=== PATIENT | female | born 1995 | race Caucasian/White ===

== ENCOUNTER 2017-02-21 18:40 | Emergency (ER) | payer OTHER ==
[2017-02-21 18:51] VITALS: TEMP 97.9
--- NOTE | 2017-02-21 19:25 | ED ---
Female Urogenital HPI - General Chief complaint: Vaginal Bleeding Stated complaint: Vaginal Bleeding, 7 weeks preg Time Seen by Provider: 02/21/17 18:58 Source: patient Mode of arrival: ambulatory Limitations: no limitations - History of Present Illness Initial comments: 22-year-old female patient who presents to the emergency department today for complaints of lower back pain, abdominal cramping, and vaginal bleeding. Patient is approximately 7 weeks . Last menstrual period was 2016. She is . Patient states that she developed lower back pain with abdominal cramping 2 days ago. Patient states that the pain has increased and she started having some spotting today. States that whenever she goes to the bathroom and wipes she has blood on toilet paper. She denies having used any pads. She has not any care, but did have positive test at [facility]. Patient denies any recent rash, fever, chills, shortness breath, chest pain, nausea, vomiting, diarrhea, constipation, numbness, tingling, dizziness, weakness, hematuria, dysuria, urinary urgency, urinary frequency, headache, visual changes, or any other complaints. She denies any concern for STIs or HIV. Last Menstrual Period: 12/30/16 - Related Data Home Medications Medication Instructions Recorded Confirmed No Known Home Medications [No 02/21/17 02/21/17 Known Home Medications] Allergies Allergy/AdvReac Type Severity Reaction Status Date / Time Penicillins Allergy Anaphylaxis Verified 02/21/17 19:28 Review of Systems ROS Statement: Those systems with pertinent positive or pertinent negative responses have been documented in the HPI. ROS Other: All systems not noted in ROS Statement are negative. Past Medical History Past Medical History: Asthma History of Any Multi-Drug Resistant Organisms: None Reported Past Surgical History: No Surgical Hx Reported Additional Past Surgical History / Comment(s): I&D throat abscess Past Anesthesia/Blood Transfusion Reactions: No Reported Reaction Past Psychological History: Anxiety Smoking Status: Never smoker Past Alcohol Use History: None Reported Past Drug Use History: None Reported - Past Family History Father Family Medical History: No Reported History General Exam Limitations: no limitations General appearance: alert, in no apparent distress, other (This is a well- developed, well-nourished adult female patient in no acute distress. Vital signs upon presentation are temperature 97.9F, pulse 97, respirations 18, blood pressure 119/56, pulse ox 98% on room air.) Eye exam: Present: normal appearance, PERRL, EOMI. Absent: scleral icterus, conjunctival injection, periorbital swelling Respiratory exam: Present: normal lung sounds bilaterally. Absent: respiratory distress, wheezes, rales, rhonchi, stridor Cardiovascular Exam: Present: regular rate, normal rhythm, normal heart sounds. Absent: systolic murmur, diastolic murmur, rubs, gallop, clicks GI/Abdominal exam: Present: soft, tenderness (Left and right pelvic tenderness.) , normal bowel sounds. Absent: distended, guarding, rebound, rigid External exam: Present: normal external exam Speculum exam: Present: normal speculum exam, vaginal bleeding (Light brown vaginal bleeding noted, small amount.) By manual exam: Present: normal by manual exam, uterine enlargement. Absent: cervical motion tenderness, adnexal tenderness Back exam: Present: normal inspection. Absent: CVA tenderness (R), CVA tenderness (L) Neurological exam: Present: alert, oriented X3, CN II-XII intact Psychiatric exam: Present: normal affect, normal mood Skin exam: Present: warm, dry, intact, normal color. Absent: rash Course Vital Signs 02/21/17 02/21/17 02/21/17 18:48 20:48 21:41 Temperature 97.9 F 97.9 F Pulse Rate 97 85 83 Respiratory 18 16 16 Rate Blood Pressure 119/56 113/55 127/61 O2 Sat by Pulse 98 100 99 Oximetry Medical Decision Making - Medical Decision Making 22-year-old female patient presented to the emergency department today for evaluation of lower abdominal cramping, back pain, and vaginal bleeding. Patient reported being 7 weeks . She is . Labs are obtained and did show a quantitative hCG of 34,798.3. Ultrasound was obtained and did show a single intrauterine measuring 6 weeks 1 day. heart activity showed 118 bpm. There was evidence for subchorionic hemorrhage. Urinalysis was negative for any acute process. Patient will be discharged home today with diagnosis of threatened miscarriage. 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 She is instructed to return here immediately for any new, worsening, or concerning symptoms. She verbalizes understanding and agrees with this plan. Note 02/22/17 0142 - Upon further review of labs found ABO/Rh is O Negative. Did call patient and left a message for her to return here for injection of RhoGAM. I did leave a note with the charge nurse and with the follow-up nurse to attempt to contact her again in the morning. - Lab Data Result diagrams: 02/21/17 19:30 02/21/17 19:30 Lab Results 02/21/17 02/21/17 02/21/17 Range/Units 19:30 19:30 19:30 WBC 8.1 (3.8-10.6) k/uL RBC 3.99 (3.80-5.40) m/uL Hgb 11.8 (11.4-16.0) gm/dL Hct 37.0 (34.0-46.0) % MCV 92.8 (80.0-100.0) fL MCH 29.5 (25.0-35.0) pg MCHC 31.8 (31.0-37.0) g/dL RDW 13.0 (11.5-15.5) % Plt Count 284 (150-450) k/uL Neutrophils % 66 % Lymphocytes % 24 % Monocytes % 6 % Eosinophils % 3 % Basophils % 0 % Neutrophils # 5.3 (1.3-7.7) k/uL Lymphocytes # 1.9 (1.0-4.8) k/uL Monocytes # 0.4 (0-1.0) k/uL Eosinophils # 0.2 (0-0.7) k/uL Basophils # 0.0 (0-0.2) k/uL Sodium 139 (137-145) mmol/L Potassium 4.1 (3.5-5.1) mmol/L Chloride 104 (98-107) mmol/L Carbon Dioxide 24 (22-30) mmol/L Anion Gap 11 mmol/L BUN 13 (7-17) mg/dL Creatinine 0.61 (0.52-1.04) mg/dL Est GFR (MDRD) Af Amer >60 (>60 ml/min/1.73 sqM) Est GFR (MDRD) Non-Af >60 (>60 ml/min/1.73 sqM) Glucose 112 H (74-99) mg/dL Calcium 9.0 (8.4-10.2) mg/dL Total Bilirubin 0.2 (0.2-1.3) mg/dL AST 13 L (14-36) U/L ALT 25 (9-52) U/L Alkaline Phosphatase 36 L (38-126) U/L Total Protein 7.5 (6.3-8.2) g/dL Albumin 4.4 (3.5-5.0) g/dL HCG, Quant 18131.3 mIU/mL Urine Color Urine Appearance (Clear) Urine pH (5.0-8.0) Ur Specific [place] (1.001-1.035) Urine Protein (Negative) Urine Glucose (UA) (Negative) Urine Ketones (Negative) Urine Blood (Negative) Urine Nitrite (Negative) Urine Bilirubin (Negative) Urine Urobilinogen (<2.0) mg/dL Ur Leukocyte Esterase (Negative) Urine RBC (0-5) /hpf Urine WBC (0-5) /hpf Ur Squamous Epith Cells (0-4) /hpf Urine Mucus (None) /hpf Trichomonas Ag (Rapid) (Negative) Blood Type O Negative Blood Type Recheck No 02/21/17 02/21/17 Range/Units 19:30 21:56 WBC (3.8-10.6) k/uL RBC (3.80-5.40) m/uL Hgb (11.4-16.0) gm/dL Hct (34.0-46.0) % MCV (80.0-100.0) fL MCH (25.0-35.0) pg MCHC (31.0-37.0) g/dL RDW (11.5-15.5) % Plt Count (150-450) k/uL Neutrophils % % Lymphocytes % % Monocytes % % Eosinophils % % Basophils % % Neutrophils # (1.3-7.7) k/uL Lymphocytes # (1.0-4.8) k/uL Monocytes # (0-1.0) k/uL Eosinophils # (0-0.7) k/uL Basophils # (0-0.2) k/uL Sodium (137-145) mmol/L Potassium (3.5-5.1) mmol/L Chloride (98-107) mmol/L Carbon Dioxide (22-30) mmol/L Anion Gap mmol/L BUN (7-17) mg/dL Creatinine (0.52-1.04) mg/dL Est GFR (MDRD) Af Amer (>60 ml/min/1.73 sqM) Est GFR (MDRD) Non-Af (>60 ml/min/1.73 sqM) Glucose (74-99) mg/dL Calcium (8.4-10.2) mg/dL Total Bilirubin (0.2-1.3) mg/dL AST (14-36) U/L ALT (9-52) U/L Alkaline Phosphatase (38-126) U/L Total Protein (6.3-8.2) g/dL Albumin (3.5-5.0) g/dL HCG, Quant mIU/mL Urine Color Yellow Urine Appearance Clear (Clear) Urine pH 6.0 (5.0-8.0) Ur Specific [place] 1.025 (1.001-1.035) Urine Protein Trace H (Negative) Urine Glucose (UA) Negative (Negative) Urine Ketones Negative (Negative) Urine Blood Negative (Negative) Urine Nitrite Negative (Negative) Urine Bilirubin Negative (Negative) Urine Urobilinogen <2.0 (<2.0) mg/dL Ur Leukocyte Esterase Small H (Negative) Urine RBC 1 (0-5) /hpf Urine WBC 2 (0-5) /hpf Ur Squamous Epith Cells 3 (0-4) /hpf Urine Mucus Rare H (None) /hpf Trichomonas Ag (Rapid) Negative (Negative) Blood Type Blood Type Recheck - Radiology Data Radiology results: report reviewed Transvaginal ultrasound obtained, report reviewed in its entirety, impression by Dr. Park shows single intrauterine gestation estimated at 6 weeks 1 day based on crown-rump length. Cardiac activity measures 118 bpm at the time of this examination. There is evidence for subchorionic hemorrhage adjacent to the gestational sac. Disposition Clinical Impression: Threatened miscarriage, Subchorionic bleed Disposition: HOME SELF-CARE Condition: Good Instructions: Threatened Miscarriage (ED), Subchorionic Hemorrhage (ED) Additional Instructions: Follow-up with your RETORT OPERATOR as soon as possible. Return here immediately for any new, worsening, or concerning symptoms. Referrals: None,Stated [Primary Care Provider] - 1-2 days James Duran MD [STAFF PHYSICIAN] - 1-2 days Time of Disposition: 21:56
[2017-02-21 19:41] LABS: Basophils % (A) 0 %; CH 30.3; CHCM 32.8; Eosinophils # (A) 0.2 k/uL (0-0.7); Eosinophils % (A) 3 %; HGB 11.8 gm/dL (11.4-16.0); Luc % (Auto) 1; Lymphocytes # (A) 1.9 k/uL (1.0-4.8); Lymphocytes % (A) 24 %; MCH 29.5 pg (25.0-35.0); MCHC 31.8 g/dL (31.0-37.0); MCV 92.8 fL (80.0-100.0); Monocytes # (A) 0.4 k/uL (0-1.0); Monocytes % (A) 6 %; Neutrophils # (A) 5.3 k/uL (1.3-7.7); Neutrophils % (A) 66 %; RBC 3.99 m/uL (3.80-5.40); WBC 8.1 k/uL (3.8-10.6); WBC (Perox) 8.01
[2017-02-21 19:51] LABS: ALT 25 U/L (9-52); AST 13 U/L (14-36); Alkaline Phosphatase 36 U/L (38-126); Anion Gap 11 mmol/L; Appearance,Urine Clear (Clear); Bilirubin,Urine Negative (Negative); Blood Urea Nitrogen 13 mg/dL (7-17); Carbon Dioxide 24 mmol/L (22-30); Chloride 104 mmol/L (98-107); Glucose 112 mg/dL (74-99); Glucose,Urine (UA) Negative (Negative); Ketones,Urine Negative (Negative); Leukocyte Esterase,Urine Small (Negative); Mucus,Urine Rare /hpf; Nitrite,Urine Negative (Negative); Non-African American GFR(MDRD) >60 (>60 ml/min/1.73 sqM); Particle Count 4952; Potassium 4.1 mmol/L (3.5-5.1); Protein,Urine Trace (Negative); RBC,Urine 1 /hpf (0-5); Sodium 139 mmol/L (137-145); Specific Gravity,Urine 1.025 (1.001-1.035); Squamous Epithelial Cell,Urine 3 /hpf (0-4); Total Bilirubin 0.2 mg/dL (0.2-1.3); Total Protein 7.5 g/dL (6.3-8.2); UA Billing (MACRO vs. MICRO) MICRO; Urobilinogen,Urine <2.0 mg/dL (<2.0); WBC,Urine 2 /hpf (0-5)
[2017-02-21 20:51] VITALS: RESP 16
--- NOTE | 2017-02-21 21:10 | US ---
EXAMINATION TYPE: US OB <=14 wks transvag DATE OF EXAM: 02/21/2017 COMPARISON: NONE CLINICAL HISTORY: pain. Cramping x few days, started to bleed today EXAM PERFORMED: Transvaginal (TV) and Transabdominal (TA) EXAM MEASUREMENTS: GESTATIONAL AGE / DATING Dates by LMP: (7 weeks/4 days) EDC: 10/06/2017 Dates by Current Scan for: (6 weeks/0 days) EDC: 10/17/2017 MATERNAL ANATOMY Uterus: 9.0 x 6.4 x 4.4 Right Ovary: 3.1 x 1.6 x 1.3 cm Left Ovary: 3.5 x 1.8 x 1.7 cm Post CDS / Adnexa: no free fluid Presence of free fluid: no Presence of corpus luteal cyst: right ovarian hypoechoic nonvascular lesion = 2.3 x 1.5 x 1.4 cm Presence of subchorionic bleed: adjacent to GS inferiorly = 1.8 x 1.3 x 1.3 cm GESTATION / SURVEY CRL: 0.4 cm (6 weeks/1 days) MSD: 1.6 cm (5 weeks/6 days) Yolk Sac (normal less than 6mm): 2.2 mm Heart Rate: 118 bpm Rhythm: Normal IUP: Viable IUP Date of LMP: 12/30/2016, Beta HcG (if available): Not available at this time Live IUP measuring 6 weeks 0 days. Subchorionic bleed seen. IMPRESSION: 1. Single intrauterine gestation estimated at 6 weeks 1 day gestation based on crown-rump length. Car diac activity measures 118 bpm the time of this examination. 2. Subchorionic hemorrhage adjacent to the gestational sac.
[2017-02-21 21:42] VITALS: BP 127/61; PULSE 83
[2017-02-25 14:54] LABS: Chlamydia/GC Source Vaginal
== END 2017-02-21 22:21 | disposition home or self-care (01) ==
LOC: EC 18:40
DX: O20.0 Threatened abortion (principal); Z88.0 Allergy status to penicillin; Z3A.01 Less than 8 weeks gestation of pregnancy
CPT/HCPCS: 36415; 76801; 76817; 80053; 81001; 84702; 85025; 86900; 86901; 87070; 87205; 87491; 87591; 87808; 99284

== ENCOUNTER 2017-06-09 18:16 | Outpatient (CLI) | payer SELFPAY ==
[2017-06-09 18:42] VITALS: BP 120/57; PULSE 82; RESP 18; TEMP 97.5
[2017-06-09 19:10] LABS: Appearance,Urine Cloudy (Clear); Bacteria,Urine Few /hpf; Bilirubin,Urine Negative (Negative); Blood,Urine Negative (Negative); Budding Yeast,Urine Occasional /hpf; Color,Urine Yellow; Glucose,Urine (UA) Negative (Negative); Ketones,Urine Negative (Negative); Leukocyte Esterase,Urine Trace (Negative); Mucus,Urine Rare /hpf; Nitrite,Urine Negative (Negative); PH, Urine 5.5 (5.0-8.0); Protein,Urine Trace (Negative); RBC,Urine 1 /hpf (0-5); Specific Gravity,Urine 1.021 (1.001-1.035); Squamous Epithelial Cell,Urine 7 /hpf (0-4); Urobilinogen,Urine <2.0 mg/dL (<2.0); WBC,Urine 6 /hpf (0-5)
--- NOTE | 2017-06-29 10:57 | P.MSEPDOC ---
Presenting Problems - Arrival Data Date of Arrival on Unit: 06/09/17 Time of Arrival on Unit: 18:25 Mode of Transport: Ambulatory - Complaint OB-Reason for Admission/Chief Complaint: Vaginal Bleeding Comment: spotting x 3 days, pt denies intercourse. Medical History - Information : 2 Para: 1 Term: 1 : 0 Abortions: Spontaneous or Elective: 0 Number of Living Children: 1 - Gestational Age Gestational Age by JIMENA (wks/days): 22 Weeks and 3 Days Review of Systems - Review of Systems Constitutional: No problems Breast: No problems ENT: No problems Cardiovascular: No problems Respiratory: No problems Gastrointestinal: No problems Genitourinary: No problems Musculoskeletal: No problems Neurological: No problems Skin: No problems Comment: history of UTI Vital Signs - Temperature Temperature: 97.5 F Temperature Source: Temporal Artery Scan - Pulse Right Sitting Brachial Pulse Rate: 82 Pulse Assessment Method: Automatic Cuff - Respirations Respiratory Rate: 18 Oxygen Delivery Method: Room Air - Blood Pressure Right Arm Sitting Blood Pressure: 120/57 Blood Pressure Mean: 78 Blood Pressure Source: Automatic Cuff Medical Screen Scoring (Pre) - Cervical Exam Dilation: Exam Deferred Effacement: Exam Deferred - Uterine Contractions Frequency: N/A Duration: N/A Intensity: N/A - Maternal Vital Signs Maternal Temperature: N/A Maternal Blood Pressure: N/A Signs of Preeclampsia: N/A Maternal Respirations: N/A - Pain Assessment Pain Scale Used: Numeric (1 - 10) Pain Intensity: 0 - Maternal Trauma Maternal Trauma: N/A - Assessment Baseline FHR: 145-155 Position: N/A Station: N/A - Total Score Total Score (Pre): 0 - Level of Risk Level of Risk: Low (0-5) Medical Screen Scoring (Post) - Cervical Exam Dilation: Exam Deferred Effacement: Exam Deferred Membranes: Intact - Uterine Contractions Frequency: N/A Duration: N/A Intensity: N/A - Maternal Vital Signs Maternal Temperature: N/A - Total Score Total Score (Post): 0 - Post Treatment Level of Risk Post Treatment Level of Risk: Low (0-5) Physician Notification (Post) - Physician Notified Physician Notified Date: 06/09/17 Physician Notified Time: 19:13 Physician/Practitioner Notified:: Dr. Simmons Spoke With: Dr. Simmons New Order Received: Yes (D/c pt to home) - Notification Comment Comment: UA results called and read to Dr. Simmons. Ok to d/c home. Follow up as previously discussed and nothing vaginally until seen in the office. Disposition - Disposition OB Disposition: Discharge to home Discharge Date: 06/09/17 Discharge Time: 19:20 I agree with the RN Medical Screening Exam: Yes Risk & Benefit of care provided described in d/c instruction: Yes Diagnosis: SPOTTING COMPLICATING , SECOND TRIMESTER
== END 2017-06-09 19:20 | disposition home or self-care (01) ==
LOC: FBPOP 18:16
PROVIDERS: ATTEND Obstetrics & Gynecology
DX: O26.852 Spotting complicating pregnancy, second trimester (principal); Z3A.22 22 weeks gestation of pregnancy
CPT/HCPCS: 81001; 99213

== ENCOUNTER 2020-02-04 12:28 | Emergency (ER) | payer OTHER ==
[2020-02-04] MEDS ORDERED: SODIUM CHLORIDE 0.9% 1,000 ML IV STA (12:56)
[2020-02-04] MEDS ORDERED: KETOROLAC 15 MG/ML 1 ML VIAL IVP STA (12:56)
[2020-02-04] MEDS ORDERED: ACETAMINOPHEN TAB 500 MG TAB PO STA (12:56)
[2020-02-04 13:06] LABS: Appearance,Urine Turbid (Clear); Bilirubin,Urine Negative (Negative); Blood,Urine Moderate (Negative); Color,Urine Yellow; Glucose,Urine (UA) Negative (Negative); Ketones,Urine Negative (Negative); Leukocyte Esterase,Urine Large (Negative); Nitrite,Urine Negative (Negative); Protein,Urine 1+ (Negative); RBC,Urine 42 /hpf (0-5); Specific Gravity,Urine 1.016 (1.001-1.035); Squamous Epithelial Cell,Urine 5 /hpf (0-4); Urobilinogen,Urine <2.0 mg/dL (<2.0); WBC,Urine >182 /hpf (0-5)
--- NOTE | 2020-02-04 13:11 | ED ---
Female Urogenital HPI - General Chief complaint: Urogenital Stated complaint: abd pain/blood in urine/sob Time Seen by Provider: 02/04/20 12:33 Source: patient Mode of arrival: ambulatory Limitations: no limitations - History of Present Illness Initial comments: Patient is a 25-year-old female presenting to the emergency Department with complaints of dysuria, mild lower back pain has been increasing for the past 2 days. Patient states she noticed some dysuria 3 days ago and try to treat at home with some ibuprofen and Azo but the symptoms have worsened. Patient states this morning she woke up nauseous, increased back pain, hematuria and felt fev erish. Patient states she also recently took a home test which is positive. She did mention to the nurse that she does not plan on keeping this , and plans on having an next week. She denies any vaginal discharge or vaginal bleeding. She does admit to some very intermittent lower abdominal pressure. She states her appetite has been very low over the past week, intermittent nausea and occasional vomiting. No diarrhea. She denies any abdominal surgeries. She denies any chest pain or shortness of breath. She has a history of mild asthma. She is no further complaints at this time. Upon arrival to the ER, she was febrile to 100.7, pulse is 108, rest of vitals are normal. - Related Data Home Medications Medication Instructions Recorded Confirmed Pnv,Calcium 72/Iron/Folic Acid 1 tab PO DAILY 06/09/17 06/09/17 [ Plus Tablet] Previous Rx's Medication Instructions Recorded Cephalexin [Keflex] 500 mg PO BID 10 Days #20 cap 02/04/20 Ondansetron Odt [Zofran Odt] 4 mg PO Q8HR PRN #10 tab 02/04/20 Allergies Allergy/AdvReac Type Severity Reaction Status Date / Time Penicillins Allergy Anaphylaxis Verified 02/04/20 12:33 tuberculin, purified protein AdvReac Swelling Verified 02/04/20 12:33 deriva Review of Systems ROS Statement: Those systems with pertinent positive or pertinent negative responses have been documented in the HPI. ROS Other: All systems not noted in ROS Statement are negative. Past Medical History Past Medical History: Asthma History of Any Multi-Drug Resistant Organisms: None Reported Past Surgical History: No Surgical Hx Reported Additional Past Surgical History / Comment(s): I&D throat abscess Past Anesthesia/Blood Transfusion Reactions: No Reported Reaction Past Psychological History: Anxiety Smoking Status: Never smoker Past Alcohol Use History: Occasional Past Drug Use History: None Reported - Past Family History Father Family Medical History: No Reported History General Exam - General Exam Comments Initial Comments: GENERAL: Patient is well-developed and well-nourished. Patient is nontoxic and in no acute distress, but does look uncomfortable. HEAD: Atraumatic, normocephalic. EYES: Pupils equal round and reactive to light, extraocular movements intact, sclera anicteric, conjunctiva are normal. Eyelids were unremarkable. ENT: TMs normal, nares patent, oropharynx clear without exudates. Moist mucous membranes. NECK: Normal range of motion, supple without lymphadenopathy or JVD. LUNGS: Unlabored respirations. Breath sounds clear to auscultation bilaterally and equal. No wheezes rales or rhonchi. HEART: Regular rate and rhythm without murmurs, rubs or gallops. ABDOMEN: Mild suprapubic tenderness. Soft, normoactive bowel sounds. No guarding, no rebound. No masses appreciated. Positive pain with percussion bilateral flank area. : Deferred MUSCULOSKELETAL: Normal extremities with adequate strength and normal range of motion, no pitting or edema. No clubbing or cyanosis. NEUROLOGICAL: Patient is alert and oriented x 3. Motor and sensory are also intact. Normal speech, normal gait. PSYCH: Normal mood, normal affect. SKIN: Warm, Dry, normal turgor, no rashes or lesions noted. Limitations: no limitations Course Vital Signs 02/04/20 12:29 Temperature 100.7 F H Pulse Rate 108 H Respiratory 16 Rate Blood Pressure 126/59 O2 Sat by Pulse 100 Oximetry Medical Decision Making - Medical Decision Making Patient is a 25-year-old female presenting with dysuria, hematuria, bilateral flank pain increasing 3 days. She did arrive febrile and slightly tachycardia today. Decreased appetite for the last week. Patient states she did recently take a test which was positive at home however she does not plan on keeping this , plans on having next week. Labs reveal a slightly white count 14.1, kidney function is normal. Urine does have a moderate amount of blood, 182 WBCs, hCG is detected. Did give patient 1 g Rocephin and fluids in the ER. She does report improvement in her symptoms. I discussed with patient that she most likely has pyelonephritis. I will continue her on Keflex as an outpatient, she can continue with Tylenol or Motrin for discomfort and fever. I recommend following up with her PCP. She is in agreement this plan of care. She is stable for discharge. Return parameters were discussed with the patient and she verbalized understanding. Case discussed with Dr. Coffman. - Lab Data Result diagrams: 02/04/20 12:58 02/04/20 12:58 Lab Results 02/04/20 02/04/20 02/04/20 Range/Units 12:40 12:40 12:58 WBC 14.1 H (3.8-10.6) k/uL RBC 3.99 (3.80-5.40) m/uL Hgb 12.3 (11.4-16.0) gm/dL Hct 37.2 (34.0-46.0) % MCV 93.3 (80.0-100.0) fL MCH 30.9 (25.0-35.0) pg MCHC 33.1 (31.0-37.0) g/dL RDW 12.0 (11.5-15.5) % Plt Count 219 (150-450) k/uL Neutrophils % 91 % Lymphocytes % 4 % Monocytes % 4 % Eosinophils % 1 % Basophils % 0 % Neutrophils # 12.8 H (1.3-7.7) k/uL Lymphocytes # 0.6 L (1.0-4.8) k/uL Monocytes # 0.5 (0-1.0) k/uL Eosinophils # 0.2 (0-0.7) k/uL Basophils # 0.0 (0-0.2) k/uL Sodium (137-145) mmol/L Potassium (3.5-5.1) mmol/L Chloride (98-107) mmol/L Carbon Dioxide (22-30) mmol/L Anion Gap mmol/L BUN (7-17) mg/dL Creatinine (0.52-1.04) mg/dL Est GFR (CKD-EPI)AfAm (>60 ml/min/1.73 sqM) Est GFR (CKD-EPI)NonAf (>60 ml/min/1.73 sqM) Glucose (74-99) mg/dL Calcium (8.4-10.2) mg/dL Total Bilirubin (0.2-1.3) mg/dL AST (14-36) U/L ALT (4-34) U/L Alkaline Phosphatase (38-126) U/L Total Protein (6.3-8.2) g/dL Albumin (3.5-5.0) g/dL Urine Color Yellow Urine Appearance Turbid H (Clear) Urine pH 6.0 (5.0-8.0) Ur Specific [place] 1.016 (1.001-1.035) Urine Protein 1+ H (Negative) Urine Glucose (UA) Negative (Negative) Urine Ketones Negative (Negative) Urine Blood Moderate H (Negative) Urine Nitrite Negative (Negative) Urine Bilirubin Negative (Negative) Urine Urobilinogen <2.0 (<2.0) mg/dL Ur Leukocyte Esterase Large H (Negative) Urine RBC 42 H (0-5) /hpf Urine WBC >182 H (0-5) /hpf Ur Squamous Epith Cells 5 H (0-4) /hpf Urine HCG, Qual Detected (Not Detectd) 02/04/20 Range/Units 12:58 WBC (3.8-10.6) k/uL RBC (3.80-5.40) m/uL Hgb (11.4-16.0) gm/dL Hct (34.0-46.0) % MCV (80.0-100.0) fL MCH (25.0-35.0) pg MCHC (31.0-37.0) g/dL RDW (11.5-15.5) % Plt Count (150-450) k/uL Neutrophils % % Lymphocytes % % Monocytes % % Eosinophils % % Basophils % % Neutrophils # (1.3-7.7) k/uL Lymphocytes # (1.0-4.8) k/uL Monocytes # (0-1.0) k/uL Eosinophils # (0-0.7) k/uL Basophils # (0-0.2) k/uL Sodium 135 L (137-145) mmol/L Potassium 4.1 (3.5-5.1) mmol/L Chloride 104 (98-107) mmol/L Carbon Dioxide 24 (22-30) mmol/L Anion Gap 7 mmol/L BUN 8 (7-17) mg/dL Creatinine 0.63 (0.52-1.04) mg/dL Est GFR (CKD-EPI)AfAm >90 (>60 ml/min/1.73 sqM) Est GFR (CKD-EPI)NonAf >90 (>60 ml/min/1.73 sqM) Glucose 94 (74-99) mg/dL Calcium 9.0 (8.4-10.2) mg/dL Total Bilirubin 0.6 (0.2-1.3) mg/dL AST 17 (14-36) U/L ALT 11 (4-34) U/L Alkaline Phosphatase 29 L (38-126) U/L Total Protein 7.2 (6.3-8.2) g/dL Albumin 4.2 (3.5-5.0) g/dL Urine Color Urine Appearance (Clear) Urine pH (5.0-8.0) Ur Specific [place] (1.001-1.035) Urine Protein (Negative) Urine Glucose (UA) (Negative) Urine Ketones (Negative) Urine Blood (Negative) Urine Nitrite (Negative) Urine Bilirubin (Negative) Urine Urobilinogen (<2.0) mg/dL Ur Leukocyte Esterase (Negative) Urine RBC (0-5) /hpf Urine WBC (0-5) /hpf Ur Squamous Epith Cells (0-4) /hpf Urine HCG, Qual (Not Detectd) Disposition Clinical Impression: Pyelonephritis Disposition: HOME SELF-CARE Condition: Stable Instructions (If sedation given, give patient instructions): Kidney Infection (ED) Additional Instructions: Please return to the Emergency Department if symptoms worsen or any other c oncerns. Take antibiotics as prescribed. May continue with Tylenol and/or Motrin for discomfort as well as fever. May take Zofran for nausea. Follow-up with PCP. Prescriptions: Cephalexin [Keflex] 500 mg PO BID 10 Days #20 cap Ondansetron Odt [Zofran Odt] 4 mg PO Q8HR PRN #10 tab PRN Reason: Nausea Is patient prescribed a controlled substance at d/c from ED?: No Referrals: None,Stated [Primary Care Provider] - 1-2 days Lindy Mcknight MD [REFERRING] - 1-2 days
[2020-02-04 13:16] LABS: Basophils % (A) 0 %; Eosinophils # (A) 0.2 k/uL (0-0.7); Eosinophils % (A) 1 %; HCT 37.2 % (34.0-46.0); HGB 12.3 gm/dL (11.4-16.0); Lymphocytes # (A) 0.6 k/uL (1.0-4.8); Lymphocytes % (A) 4 %; MCH 30.9 pg (25.0-35.0); MCHC 33.1 g/dL (31.0-37.0); MCV 93.3 fL (80.0-100.0); Mean Platelet Volume 7.4; Monocytes # (A) 0.5 k/uL (0-1.0); Monocytes % (A) 4 %; Neutrophils # (A) 12.8 k/uL (1.3-7.7); Neutrophils % (A) 91 %; Platelet Count 219 k/uL (150-450); RBC 3.99 m/uL (3.80-5.40); WBC 14.1 k/uL (3.8-10.6)
[2020-02-04] MEDS ORDERED: cefTRIAXone IN SWFI 1,000 MG/10 ML SYRINGE IVP STA (13:18)
[2020-02-04 13:29] LABS: ALT 11 U/L (4-34); AST 17 U/L (14-36); African American GFR (CKD) >90 (>60 ml/min/1.73 sqM); Albumin 4.2 g/dL (3.5-5.0); Alkaline Phosphatase 29 U/L (38-126); Anion Gap 7 mmol/L; Blood Urea Nitrogen 8 mg/dL (7-17); Carbon Dioxide 24 mmol/L (22-30); Chloride 104 mmol/L (98-107); Glucose 94 mg/dL (74-99); Non-African American GFR(CKD) >90 (>60 ml/min/1.73 sqM); Potassium 4.1 mmol/L (3.5-5.1); Sodium 135 mmol/L (137-145); Total Bilirubin 0.6 mg/dL (0.2-1.3); Total Protein 7.2 g/dL (6.3-8.2)
[2020-02-04] MEDS ORDERED: ONDANSETRON 4 MG/2 ML VIAL IVP STA (13:32)
[2020-02-04 13:56] VITALS: BP 107/60; PULSE 91; RESP 18; TEMP 100
== END 2020-02-04 14:02 | disposition home or self-care (01) ==
LOC: EC 12:28
DX: N12 Tubulo-interstitial nephritis, not specified as acute or chronic (principal); R00.0 Tachycardia, unspecified; Z88.8 Allergy status to other drugs, medicaments and biological substances; Z88.0 Allergy status to penicillin
CPT/HCPCS: 36415; 80053; 85025; 81001; 81025; 87086; 99283; 96374; 96375 ×2; 96361; J2405; J0696; J1885

== ENCOUNTER 2020-09-21 21:52 | Emergency (ER) | payer OTHER ==
[2020-09-21 22:44] LABS: Basophils # (A) 0.1 k/uL (0-0.2); Basophils % (A) 1 %; Eosinophils # (A) 0.2 k/uL (0-0.7); Eosinophils % (A) 1 %; HCT 37.2 % (34.0-46.0); HGB 12.7 gm/dL (11.4-16.0); Lymphocytes % (A) 21 %; MCH 31.3 pg (25.0-35.0); MCHC 34.3 g/dL (31.0-37.0); MCV 91.1 fL (80.0-100.0); Mean Platelet Volume 7.8; Monocytes # (A) 0.6 k/uL (0-1.0); Monocytes % (A) 4 %; Neutrophils # (A) 10.7 k/uL (1.3-7.7); Neutrophils % (A) 73 %; Platelet Count 426 k/uL (150-450); RBC 4.08 m/uL (3.80-5.40); RDW 12.8 % (11.5-15.5); WBC 14.6 k/uL (3.8-10.6)
[2020-09-21] MEDS ORDERED: SODIUM CHLORIDE 0.9% 1,000 ML IV ONE (23:01)
[2020-09-21] MEDS ORDERED: ONDANSETRON 4 MG/2 ML VIAL IVP STA (23:01)
[2020-09-21 23:08] LABS: ALT 14 U/L (4-34); AST 24 U/L (14-36); African American GFR (CKD) >90 (>60 ml/min/1.73 sqM); Albumin 4.9 g/dL (3.5-5.0); Alkaline Phosphatase 32 U/L (38-126); Amylase 69 U/L (30-110); Anion Gap 13 mmol/L; Blood Urea Nitrogen 16 mg/dL (7-17); Calcium 9.6 mg/dL (8.4-10.2); Carbon Dioxide 24 mmol/L (22-30); Chloride 103 mmol/L (98-107); Glucose 164 mg/dL (74-99); Lipase 108 U/L (23-300); Non-African American GFR(CKD) 89 (>60 ml/min/1.73 sqM); Sodium 140 mmol/L (137-145); Total Bilirubin 0.4 mg/dL (0.2-1.3); Total Protein 7.7 g/dL (6.3-8.2)
--- NOTE | 2020-09-21 23:20 | ED ---
Abdominal Pain HPI - General Chief Complaint: Abdominal Pain Stated Complaint: Abd Pain Time Seen by Provider: 09/21/20 22:08 Source: patient Mode of arrival: wheelchair Limitations: no limitations - History of Present Illness Initial Comments: This patient is a 25 year old woman who presents to be evaluated for abdominal pain. She states that it had come on this afternoon. She indicates the bilateral lower abdomen. She states that about a half-hour after that she began having some nausea and she has had a couple of episodes of vomiting. It is been no hematemesis or coffee-ground material. She denies any migration of the pain. No radiation. She has not discovered any relieving factors, and notes that is worse if she presses on the abdomen. Patient also notes that she had 2 menstrual cycles within the past month which is unusual for her. Currently no vaginal discharge or bleeding. No change in urination or bowel movements. MD Complaint: abdominal pain -: hour(s) Location: LLQ, RLQ, suprapubic Radiation: none Migration to: no migration Severity: moderate Quality: aching Consistency: constant Improves With: nothing Worsens With: nothing Associated Symptoms: nausea, vomiting - Related Data LMP (females 10-50): last week Home Medications Medication Instructions Recorded Confirmed Pnv,Calcium 72/Iron/Folic Acid 1 tab PO DAILY 06/09/17 06/09/17 [ Plus Tablet] Previous Rx's Medication Instructions Recorded Cephalexin [Keflex] 500 mg PO BID 10 Days #20 cap 02/04/20 Ondansetron Odt [Zofran Odt] 4 mg PO Q8HR PRN #10 tab 02/04/20 Nitrofurantoin Monohyd/M-Cryst 100 mg PO Q12HR #6 cap 09/22/20 [Macrobid] Allergies Allergy/AdvReac Type Severity Reaction Status Date / Time Penicillins Allergy Anaphylaxis Verified 09/21/20 21:59 tuberculin, purified protein AdvReac Swelling Verified 09/21/20 21:59 deriva Review of Systems ROS Statement: Those systems with pertinent positive or pertinent negative responses have been documented in the HPI. ROS Other: All systems not noted in ROS Statement are negative. Constitutional: Denies: fever, chills Respiratory: Denies: cough, dyspnea Cardiovascular: Denies: chest pain, palpitations, syncope Gastrointestinal: Reports: as per HPI, abdominal pain, nausea, vomiting. Denies: diarrhea, constipation, hematemesis, melena, hematochezia Genitourinary: Reports: as per HPI, abnormal menses. Denies: dysuria, frequency, hematuria, discharge Musculoskeletal: Denies: back pain Skin: Denies: rash Neurological: Denies: headache Past Medical History Past Medical History: Asthma History of Any Multi-Drug Resistant Organisms: None Reported Past Surgical History: No Surgical Hx Reported Additional Past Surgical History / Comment(s): I&D throat abscess Past Anesthesia/Blood Transfusion Reactions: No Reported Reaction Past Psychological History: Anxiety Smoking Status: Never smoker Past Alcohol Use History: Occasional Past Drug Use History: None Reported - Past Family History Father Family Medical History: No Reported History General Exam Limitations: no limitations General appearance: alert, in no apparent distress Head exam: Present: atraumatic, normocephalic Eye exam: Present: normal appearance. Absent: scleral icterus, conjunctival injection ENT exam: Present: normal oropharynx Neck exam: Present: normal inspection Respiratory exam: Present: normal lung sounds bilaterally. Absent: respiratory distress, wheezes, rales, rhonchi, stridor Cardiovascular Exam: Present: regular rate, normal rhythm, normal heart sounds. Absent: systolic murmur, diastolic murmur, rubs, gallop GI/Abdominal exam: Present: soft, tenderness (There is bilateral lower quadrant tenderness without rebound or guarding). Absent: distended, guarding, rebound, rigid, mass, pulsatile mass, hernia Extremities exam: Present: normal inspection, normal capillary refill. Absent: pedal edema, calf tenderness Back exam: Present: normal inspection. Absent: CVA tenderness (R), CVA tenderness (L) Neurological exam: Present: alert Skin exam: Present: warm, dry, intact, normal color. Absent: rash Course Vital Signs 09/21/20 09/21/20 21:57 23:00 Temperature 97.9 F Pulse Rate 123 H 113 H Respiratory 16 20 Rate Blood Pressure 117/62 116/52 O2 Sat by Pulse 99 99 Oximetry Medical Decision Making - Lab Data Result diagrams: 09/21/20 22:20 09/21/20 22:20 Lab Results 09/21/20 09/21/20 09/21/20 Range/Units 22:20 22:20 22:20 WBC 14.6 H (3.8-10.6) k/uL RBC 4.08 (3.80-5.40) m/uL Hgb 12.7 (11.4-16.0) gm/dL Hct 37.2 (34.0-46.0) % MCV 91.1 (80.0-100.0) fL MCH 31.3 (25.0-35.0) pg MCHC 34.3 (31.0-37.0) g/dL RDW 12.8 (11.5-15.5) % Plt Count 426 (150-450) k/uL MPV 7.8 Neutrophils % 73 % Lymphocytes % 21 % Monocytes % 4 % Eosinophils % 1 % Basophils % 1 % Neutrophils # 10.7 H (1.3-7.7) k/uL Lymphocytes # 3.0 (1.0-4.8) k/uL Monocytes # 0.6 (0-1.0) k/uL Eosinophils # 0.2 (0-0.7) k/uL Basophils # 0.1 (0-0.2) k/uL Sodium 140 (137-145) mmol/L Potassium 4.0 (3.5-5.1) mmol/L Chloride 103 (98-107) mmol/L Carbon Dioxide 24 (22-30) mmol/L Anion Gap 13 mmol/L BUN 16 (7-17) mg/dL Creatinine 0.90 (0.52-1.04) mg/dL Est GFR (CKD-EPI)AfAm >90 (>60 ml/min/1.73 sqM) Est GFR (CKD-EPI)NonAf 89 (>60 ml/min/1.73 sqM) Glucose 164 H (74-99) mg/dL Calcium 9.6 (8.4-10.2) mg/dL Total Bilirubin 0.4 (0.2-1.3) mg/dL AST 24 (14-36) U/L ALT 14 (4-34) U/L Alkaline Phosphatase 32 L (38-126) U/L Total Protein 7.7 (6.3-8.2) g/dL Albumin 4.9 (3.5-5.0) g/dL Amylase 69 (30-110) U/L Lipase 108 (23-300) U/L Urine Color Yellow Urine Appearance Cloudy H (Clear) Urine pH 5.0 (5.0-8.0) Ur Specific Brady 1.029 (1.001-1.035) Urine Protein Trace H (Negative) Urine Glucose (UA) Negative (Negative) Urine Ketones Trace H (Negative) Urine Blood Negative (Negative) Urine Nitrite Negative (Negative) Urine Bilirubin Negative (Negative) Urine Urobilinogen <2.0 (<2.0) mg/dL Ur Leukocyte Esterase Large H (Negative) Urine RBC 5 (0-5) /hpf Urine WBC 16 H (0-5) /hpf Ur Squamous Epith Cells 10 H (0-4) /hpf Urine Bacteria Rare H (None) /hpf Urine Mucus Many H (None) /hpf Urine HCG, Qual (Not Detectd) 09/21/20 Range/Units 22:20 WBC (3.8-10.6) k/uL RBC (3.80-5.40) m/uL Hgb (11.4-16.0) gm/dL Hct (34.0-46.0) % MCV (80.0-100.0) fL MCH (25.0-35.0) pg MCHC (31.0-37.0) g/dL RDW (11.5-15.5) % Plt Count (150-450) k/uL MPV Neutrophils % % Lymphocytes % % Monocytes % % Eosinophils % % Basophils % % Neutrophils # (1.3-7.7) k/uL Lymphocytes # (1.0-4.8) k/uL Monocytes # (0-1.0) k/uL Eosinophils # (0-0.7) k/uL Basophils # (0-0.2) k/uL Sodium (137-145) mmol/L Potassium (3.5-5.1) mmol/L Chloride (98-107) mmol/L Carbon Dioxide (22-30) mmol/L Anion Gap mmol/L BUN (7-17) mg/dL Creatinine (0.52-1.04) mg/dL Est GFR (CKD-EPI)AfAm (>60 ml/min/1.73 sqM) Est GFR (CKD-EPI)NonAf (>60 ml/min/1.73 sqM) Glucose (74-99) mg/dL Calcium (8.4-10.2) mg/dL Total Bilirubin (0.2-1.3) mg/dL AST (14-36) U/L ALT (4-34) U/L Alkaline Phosphatase (38-126) U/L Total Protein (6.3-8.2) g/dL Albumin (3.5-5.0) g/dL Amylase (30-110) U/L Lipase (23-300) U/L Urine Color Urine Appearance (Clear) Urine pH (5.0-8.0) Ur Specific Brady (1.001-1.035) Urine Protein (Negative) Urine Glucose (UA) (Negative) Urine Ketones (Negative) Urine Blood (Negative) Urine Nitrite (Negative) Urine Bilirubin (Negative) Urine Urobilinogen (<2.0) mg/dL Ur Leukocyte Esterase (Negative) Urine RBC (0-5) /hpf Urine WBC (0-5) /hpf Ur Squamous Epith Cells (0-4) /hpf Urine Bacteria (None) /hpf Urine Mucus (None) /hpf Urine HCG, Qual Not Detected (Not Detectd) Disposition Clinical Impression: Abdominal pain Disposition: HOME SELF-CARE Condition: Good Instructions (If sedation given, give patient instructions): Abdominal Pain (ED) Prescriptions: Nitrofurantoin Monohyd/M-Cryst [Macrobid] 100 mg PO Q12HR #6 cap Is patient prescribed a controlled substance at d/c from ED?: No Referrals: None,Stated [Primary Care Provider] - 1-2 days
[2020-09-21 23:44] VITALS: RESP 20
[2020-09-21 23:58] LABS: Appearance,Urine Cloudy (Clear); Bacteria,Urine Rare /hpf; Bilirubin,Urine Negative (Negative); Blood,Urine Negative (Negative); Color,Urine Yellow; Glucose,Urine (UA) Negative (Negative); Ketones,Urine Trace (Negative); Leukocyte Esterase,Urine Large (Negative); Mucus,Urine Many /hpf; Nitrite,Urine Negative (Negative); Protein,Urine Trace (Negative); RBC,Urine 5 /hpf (0-5); Specific Gravity,Urine 1.029 (1.001-1.035); Squamous Epithelial Cell,Urine 10 /hpf (0-4); Urobilinogen,Urine <2.0 mg/dL (<2.0); WBC,Urine 16 /hpf (0-5)
--- NOTE | 2020-09-22 00:27 | CT ---
EXAMINATION TYPE: CT abdomen pelvis w con DATE OF EXAM: 09/22/2020 COMPARISON: None HISTORY: low abdominal pain, possible appendicitis RLQ pain CT DLP: 602.1 mGycm Automated exposure control for dose reduction was used. CONTRAST: Performed with IV Contrast, patient injected with 100 mL of Isovue 300. Images obtained from the diaphragm to the floor the pelvis with IV contrast. FINDINGS: Lung bases are clear. There is no pleural effusion. Heart size is normal. There is no pericardial eff usion. Liver spleen pancreas stomach gallbladder appear intact. Bile ducts are not dilated. There is no adrenal mass. Kidneys show satisfactory contrast opacification. There is no hydronephrosi s. Ureters are not dilated. There is no retroperitoneal adenopathy. Bladder distends smoothly. There is no inguinal hernia. There is no free fluid in the pelvis. Uterus is retroverted. There is no evide nce of a pelvic mass. There is no mesenteric edema. There is no ascites or free air. There is no bowel obstruction. The cec um is low in the pelvis. There is appendix partly filled with air on the right lateral pelvic sidewal l and appears normal. This is best seen on axial image 66. Delayed images show normal renal excretion. The lumbar vertebra have normal spacing and alignment. Th ere is no compression fracture. Bony pelvis is intact. Hip joints are intact. IMPRESSION: Normal appendix. No sign of acute abdomen and pelvis. Normal exam.
[2020-09-22] MEDS ORDERED: NITROFURANTOIN MONOHYD/M-CRYST 100 MG CAP PO STA (00:48)
[2020-09-22 01:12] VITALS: BP 105/55; PULSE 78; TEMP 98.1
== END 2020-09-22 01:10 | disposition home or self-care (01) ==
LOC: EC 21:52
DX: R10.31 Right lower quadrant pain (principal); R10.32 Left lower quadrant pain; J45.909 Unspecified asthma, uncomplicated
CPT/HCPCS: 36415; 80053; 82150; 83690; 85025; 81001; 81025; 87086; 74177; 99284; 96374; 96361; J2405; Q9967

== ENCOUNTER 2021-08-20 13:32 | Emergency (ER) | payer OTHER ==
[2021-08-20 13:42] VITALS: BP 122/70; PULSE 97; RESP 16; TEMP 99.5
[2021-08-20] MEDS ORDERED: LORazepam 1 MG TAB PO STA (13:51)
--- NOTE | 2021-08-20 13:53 | ED ---
General Adult HPI - General Chief complaint: Anxiety Stated complaint: medication reaction Time Seen by Provider: 08/20/21 13:40 Source: patient, RN notes reviewed, old records reviewed Mode of arrival: ambulatory Limitations: no limitations - History of Present Illness Initial comments: This is a 26-year-old female who presents emergency Department with a past medical history significant for depression and anxiety. Patient states she started left about 6 weeks ago she over the last couple of days had more panic attacks. Patient states she's wondering if it's related to Lexapro. Patient comes in today because she wants something to calm down because she was having a panic attack at home. Patient states driving her hand became very sweaty bec ause she was panicking so bad. Patient denies any suicidal homicidal ideations. Patient denies any drug use or drinking. Patient denies any chance that she is . Patient denies any chest pain difficulty breathing shortness of breath. Patient denies any fever chills or cough per patient denies abdominal pain patient denies any nausea vomiting diarrhea. - Related Data Previous Rx's Medication Instructions Recorded Nitrofurantoin Monohyd/M-Cryst 100 mg PO Q12HR #6 cap 09/22/20 [Macrobid] Allergies Allergy/AdvReac Type Severity Reaction Status Date / Time Penicillins Allergy Anaphylaxis Verified 08/20/21 13:38 tuberculin, purified protein AdvReac Swelling Verified 08/20/21 13:38 deriva Review of Systems ROS Statement: Those systems with pertinent positive or pertinent negative responses have been documented in the HPI. ROS Other: All systems not noted in ROS Statement are negative. Past Medical History Past Medical History: Asthma History of Any Multi-Drug Resistant Organisms: None Reported Past Surgical History: No Surgical Hx Reported Additional Past Surgical History / Comment(s): I&D throat abscess Past Anesthesia/Blood Transfusion Reactions: No Reported Reaction Past Psychological History: Anxiety Smoking Status: Never smoker Past Alcohol Use History: Occasional Past Drug Use History: None Reported - Past Family History Father Family Medical History: No Reported History General Exam - General Exam Comments Initial Comments: GENERAL: Patient is well-developed and well-nourished. Patient is nontoxic and well- hydrated and is in mild distress. ENT: Neck is soft and supple. No significant lymphadenopathy is noted. Moist mucous membranes. Neck has full range of motion without eliciting any pain. EYES: The sclera were anicteric and conjunctiva were pink and moist. Extraocular movements were intact and pupils were equal round and reactive to light. Eyelids were unremarkable. PULMONARY: Unlabored respirations. Good breath sounds bilaterally. No audible rales rhonchi or wheezing was noted. CARDIOVASCULAR: There is a regular rate and rhythm without any murmurs gallops or rubs. ABDOMEN: Soft and nontender with normal bowel sounds. SKIN: Skin is clear with no lesions or rashes and otherwise unremarkable. NEUROLOGIC: Patient is alert and oriented x3. Cranial nerves II through XII are grossly intact. Motor and sensory are also intact. Normal speech, volume and content. Symmetrical smile. MUSCULOSKELETAL: Normal extremities with adequate strength and full range of motion. LYMPHATICS: No significant lymphadenopathy is noted PSYCHIATRIC: Mild anxiety Limitations: no limitations Course Vital Signs 08/20/21 13:38 Temperature 99.5 F Pulse Rate 97 Respiratory 16 Rate Blood Pressure 122/70 O2 Sat by Pulse 99 Oximetry Disposition Clinical Impression: Acute anxiety Disposition: HOME SELF-CARE Instructions (If sedation given, give patient instructions): Generalized Anxiety Disorder (ED) Is patient prescribed a controlled substance at d/c from ED?: No Referrals: Tra Franco MD [REFERRING] - 1-2 days Time of Disposition: 13:53
== END 2021-08-20 14:23 | disposition home or self-care (01) ==
LOC: EC 13:32
DX: F41.9 Anxiety disorder, unspecified (principal); J45.909 Unspecified asthma, uncomplicated; Z88.0 Allergy status to penicillin; Z88.8 Allergy status to other drugs, medicaments and biological substances
CPT/HCPCS: 99283

== ENCOUNTER 2023-03-24 22:25 | Emergency (ER) | payer OTHER ==
[2023-03-24 22:49] VITALS: RESP 18
--- NOTE | 2023-03-24 23:54 | ED ---
Female Urogenital HPI - General Source: patient Mode of arrival: ambulatory Limitations: no limitations <Ricardo Alvarado - Last Filed: 03/24/23 23:54> <Barbara Beltran - Last Filed: 03/25/23 03:45> - General Chief complaint: Vaginal Bleeding Stated complaint: excessive vag bleeding,dizziness Time Seen by Provider: 03/24/23 22:33 - History of Present Illness Initial comments: 28 year old female states approximately a few weeks later started to experience what she thought was her normal period however reports since this is started she has not been able to stop the bleeding. Patient reports she has been going th rough 2-3 pads or tampons daily since this is started. Patient reports some intermittent abdominal cramping feeling similar to period cramps. Patient reports over the past week she is now starting to experience some intermittent dizziness. No chest pain or shortness of breath. No other complaints. (Ricardo Alvarado) - Related Data Previous Rx's Medication Instructions Recorded Nitrofurantoin Monohyd/M-Cryst 100 mg PO Q12HR #6 cap 09/22/20 [Macrobid] Allergies Allergy/AdvReac Type Severity Reaction Status Date / Time Penicillins Allergy Anaphylaxis Verified 03/24/23 22:30 tuberculin, purified protein AdvReac Swelling Verified 03/24/23 22:30 deriva Review of Systems ROS Other: All systems not noted in ROS Statement are negative. <Ricardo Alvarado - Last Filed: 03/24/23 23:54> ROS Other: All systems not noted in ROS Statement are negative. <Barbara Beltran - Last Filed: 03/25/23 03:45> ROS Statement: Those systems with pertinent positive or pertinent negative responses have been documented in the HPI. Past Medical History Past Medical History: Asthma History of Any Multi-Drug Resistant Organisms: None Reported Past Surgical History: No Surgical Hx Reported Additional Past Surgical History / Comment(s): I&D throat abscess Past Anesthesia/Blood Transfusion Reactions: No Reported Reaction Past Psychological History: Anxiety Smoking Status: Vaper Past Alcohol Use History: Occasional Past Drug Use History: None Reported - Past Family History Father Family Medical History: No Reported History <Ricardo Alvarado - Last Filed: 03/24/23 23:54> General Exam Limitations: no limitations General appearance: alert, in no apparent distress Neck exam: Present: normal inspection Respiratory exam: Present: normal lung sounds bilaterally Cardiovascular Exam: Present: regular rate, normal rhythm GI/Abdominal exam: Present: soft (No tenderness to palpation. No rebound guarding or rigidity.) External exam: Present: other (Exam chaperoned by Marge POTTER. Os closed. No cervical discharge. Minimal blood. No gross active bleeding.) Extremities exam: Present: normal inspection Neurological exam: Present: alert, oriented X3 Skin exam: Present: warm, dry <Ricardo Alvarado - Last Filed: 03/24/23 23:54> Course Vital Signs 03/24/23 03/25/23 22:26 03:29 Temperature 98.2 F 98.4 F Pulse Rate 85 76 Respiratory 18 18 Rate Blood Pressure 126/58 110/62 O2 Sat by Pulse 100 100 Oximetry Medical Decision Making <Ricardo Alvarado - Last Filed: 03/24/23 23:54> - Lab Data Result diagrams: 03/24/23 23:08 03/24/23 23:08 <Barbara Beltran - Last Filed: 03/25/23 03:45> - Medical Decision Making Was pt. sent in by a medical professional or institution (, PA, BAND SAWMILL OPERATOR, urgent care, hospital, or assisted...) When possible be specific @ -No Did you speak to anyone other than the patient for history (EMS, parent, family, police, friend...)? What history was obtained from this source @ -No Did you review nursing and triage notes (agree or disagree)? Why? @ -I reviewed and agree with nursing and triage notes Were old charts reviewed (outside hosp., previous admission, EMS record, old EKG, old radiological studies, urgent care reports/EKG's, assisted records)? Report findings @ -No old charts were reviewed Differential Diagnosis (chest pain, altered mental status, abdominal pain women, abdominal pain men, vaginal bleeding, weakness, fever, dyspnea, syncope, headache, dizziness, GI bleed, back pain, seizure, CVA, palpatations, mental health, musculoskeletal)? @ -Differential Vaginal Bleeding: Spontaneous , threatened , molar , ectopic , bloody show, incompetent cervix, abruptioplacenta, placenta previa, uterine rupture, dysfunctional uterine bleeding, hemorrhage, uterine fibroids, this is not meant to be an all-inclusive list. EKG interpreted by me (3pts min.). @ -None X-rays interpreted by me (1pt min.). @ -None done CT interpreted by me (1pt min.). @ -None done U/S interpreted by me (1pt. min.). @ -Pending What testing was considered but not performed or refused? (CT, X-rays, U/S, labs)? Why? @ -None What meds were considered but not given or refused? Why? @ -None Did you discuss the management of the patient with other professionals (professionals i.e. DrSandrita, PA, BAND SAWMILL OPERATOR, lab, RT, psych nurse, secondary social studies teacher, vocational examiner, teacher, strategic debriefing officer, bilingual case manager)? Give summary @ -No Was smoking cessation discussed for >3mins.? @ -No Was critical care preformed (if so, how long)? @ -No Were there social determinants of health that impacted care today? How? (Homelessness, low income, unemployed, alcoholism, drug addiction, transportation, low edu. Level, literacy, decrease access to med. care, group home, rehab)? @ -No Was there de-escalation of care discussed even if they declined (Discuss DNR or withdrawal of care, Hospice)? DNR status @ -No What co-morbidities impacted this encounter? (DM, HTN, Smoking, COPD, CAD, Cancer, CVA, ARF, Chemo, Hep., AIDS, mental health diagnosis, sleep apnea, morbid obesity)? @ -None Was patient admitted / discharged? Hospital course, mention meds given and route, prescriptions, significant lab abnormalities, going to OR and other pertinent info. @ -Pending At this time, case signed out to oncoming physician transport assistant Barbara Beltran PA-C (Ricardo Alvarado) Was patient admitted / discharged? Hospital course, mention meds given and rou te, prescriptions, significant lab abnormalities, going to OR and other pertinent info. @ -I assumed the care of this patient from Ricardo Alvarado PA-C. In short this is a 28-year-old female presenting with chief complaint of vaginal bleeding for the last 2 months. Patient notes that on December 26 she did have a miscarriage, she has not yet followed up with her PRODUCT MANAGEMENT SPECIALIST Dr. Diaz. Hemoglobin 11. HCG quantitative less than 2.4. Transvaginal ultrasound shows mild endometrial thickening which is within normal limits for monitoring female. No evidence of ovarian torsion. On reassessment patient is sleeping comfortably. She is educated on today's findings. She is instructed to follow-up with her PRODUCT MANAGEMENT SPECIALIST. Follow-up with PCP. Report back to ER with any new or worsening symptoms. Discussed return parameters and answered all questions. Patient conveyed verbal understanding and agreed to the plan. I discussed this case in detail with my attending Dr. Cerna Undiagnosed new problem with uncertain prognosis? @ -No Drug Therapy requiring intensive monitoring for toxicity (Heparin, Nitro, Insulin, Cardizem)? @ -No Were any procedures done? @ -No Diagnosis/symptom? @ -Dysfunctional uterine bleeding Acute, or Chronic, or Acute on Chronic? @ -Acute Uncomplicated (without systemic symptoms) or Complicated (systemic symptoms)? @ -Uncomplicated Side effects of treatment? @ -No Exacerbation, Progression, or Severe Exacerbation? @ -No Poses a threat to life or bodily function? How? (Chest pain, [place], [place], pneumonia, PE, COPD, DKA, ARF, appy, cholecystitis, CVA, Diverticulitis, Homicidal, Suicidal, threat to staff... and all critical care pts) @ -Low likelihood (Barbara Beltran) - Lab Data Lab Results 03/24/23 03/24/23 03/25/23 Range/Units 23:08 23:08 00:26 WBC 7.9 (3.8-10.6) k/uL RBC 3.70 L (3.80-5.40) m/uL Hgb 11.0 L (11.4-16.0) gm/dL Hct 33.6 L (34.0-46.0) % MCV 90.8 (80.0-100.0) fL MCH 29.8 (25.0-35.0) pg MCHC 32.8 (31.0-37.0) g/dL RDW 12.6 (11.5-15.5) % Plt Count 365 (150-450) k/uL MPV 8.1 Neutrophils % 57 % Lymphocytes % 31 % Monocytes % 5 % Eosinophils % 5 % Basophils % 1 % Neutrophils # 4.5 (1.3-7.7) k/uL Lymphocytes # 2.4 (1.0-4.8) k/uL Monocytes # 0.4 (0-1.0) k/uL Eosinophils # 0.4 (0-0.7) k/uL Basophils # 0.0 (0-0.2) k/uL Sodium 141 (137-145) mmol/L Potassium 3.9 (3.5-5.1) mmol/L Chloride 103 (98-107) mmol/L Carbon Dioxide 24 (22-30) mmol/L Anion Gap 14 mmol/L BUN 16 (7-17) mg/dL Creatinine 0.76 (0.52-1.04) mg/dL Est GFR (CKD-EPI)AfAm >90 (>60 ml/min/1.73 sqM) Est GFR (CKD-EPI)NonAf >90 (>60 ml/min/1.73 sqM) Glucose 110 H (74-99) mg/dL Calcium 9.3 (8.4-10.2) mg/dL Total Bilirubin 0.3 (0.2-1.3) mg/dL AST 22 (14-36) U/L ALT 15 (4-34) U/L Alkaline Phosphatase 32 L (38-126) U/L Total Protein 8.1 (6.3-8.2) g/dL Albumin 4.8 (3.5-5.0) g/dL HCG, Quant <2.4 mIU/mL Disposition <Ricardo Alvarado - Last Filed: 03/24/23 23:54> Is patient prescribed a controlled substance at d/c from ED?: No Time of Disposition: 03:19 <Barbara Beltran - Last Filed: 03/25/23 03:45> Clinical Impression: Dysfunctional uterine bleeding Disposition: HOME SELF-CARE Condition: Good Instructions (If sedation given, give patient instructions): Abnormal (Dysfunctional) Uterine Bleeding (ED) Additional Instructions: Follow-up with your PRODUCT MANAGEMENT SPECIALIST. Report back to ER with any new or worsening symptoms. Referrals: None,Stated [Primary Care Provider] - 1-2 days Misha Diaz DO [REFERRING] - 1-2 days
[2023-03-25 00:01] LABS: Basophils % (A) 1 %; Eosinophils # (A) 0.4 k/uL (0-0.7); Eosinophils % (A) 5 %; HCT 33.6 % (34.0-46.0); Lymphocytes # (A) 2.4 k/uL (1.0-4.8); Lymphocytes % (A) 31 %; MCH 29.8 pg (25.0-35.0); MCHC 32.8 g/dL (31.0-37.0); MCV 90.8 fL (80.0-100.0); Mean Platelet Volume 8.1; Monocytes # (A) 0.4 k/uL (0-1.0); Monocytes % (A) 5 %; Neutrophils # (A) 4.5 k/uL (1.3-7.7); Neutrophils % (A) 57 %; Platelet Count 365 k/uL (150-450); RDW 12.6 % (11.5-15.5); WBC 7.9 k/uL (3.8-10.6)
[2023-03-25] MEDS ORDERED: SODIUM CHLORIDE 0.9% 1,000 ML IV ONE (00:33)
[2023-03-25 00:55] LABS: ALT 15 U/L (4-34); AST 22 U/L (14-36); African American GFR (CKD) >90 (>60 ml/min/1.73 sqM); Albumin 4.8 g/dL (3.5-5.0); Alkaline Phosphatase 32 U/L (38-126); Anion Gap 14 mmol/L; Blood Urea Nitrogen 16 mg/dL (7-17); Calcium 9.3 mg/dL (8.4-10.2); Carbon Dioxide 24 mmol/L (22-30); Chloride 103 mmol/L (98-107); Glucose 110 mg/dL (74-99); Non-African American GFR(CKD) >90 (>60 ml/min/1.73 sqM); Potassium 3.9 mmol/L (3.5-5.1); Sodium 141 mmol/L (137-145); Total Bilirubin 0.3 mg/dL (0.2-1.3); Total Protein 8.1 g/dL (6.3-8.2)
--- NOTE | 2023-03-25 01:28 | US ---
EXAM: US Pelvis Transvaginal CLINICAL HISTORY: ITS.REASON US Reason: vag bleeding x 2 months TECHNIQUE: Real-time transvaginal pelvic ultrasound with image documentation. Transvaginal imaging was used for better evaluation of the endometrium and adnexa. COMPARISON: No relevant prior studies available. FINDINGS: Uterus/cervix: Uterus is unremarkable measuring 7.9 x 5.4 x 5 cm. Endometrial thickening measured 1.3 cm. No myometrial mass. Right ovary: Right ovary measures 4.3 x 1.5 x 1.1 cm. Left ovary measures 3.6 x 2.1 x 1.3 cm. No evidence of ovarian torsion. Left ovary: See above. Free fluid: No free fluid. Bladder: Empty bladder which cannot be evaluated with this probe. IMPRESSION: 1. Mild endometrial thickening which is within normal limits for menstruating female. 2. No evidence of ovarian torsion.
[2023-03-25 03:32] VITALS: BP 110/62; PULSE 76; TEMP 98.4
== END 2023-03-25 03:33 | disposition home or self-care (01) ==
LOC: EC 22:25
DX: N93.8 Other specified abnormal uterine and vaginal bleeding (principal); J45.909 Unspecified asthma, uncomplicated; F17.290 Nicotine dependence, other tobacco product, uncomplicated; Z88.0 Allergy status to penicillin; Z91.09 Other allergy status, other than to drugs and biological substances
CPT/HCPCS: 36415; 76830; 80053; 84702; 85025; 93975; 96360; 99284